=== PATIENT | male | born 1985 | race African-American/Black ===

== ENCOUNTER 2016-11-20 18:26 | Emergency (ER) | payer BC ==
[~2016-11-20] VITALS: Ht 182.9 cm; Wt 115.0 kg
--- NOTE | 2016-11-20 18:57 | NUR ---
STATES HE HAS A SCRATCHY THROAT SUN & MON. CL
--- NOTE | 2016-11-20 19:00 | NUR ---
MD MADE AWARE OF PATIENT COMPLAINT- MD ORDERED AN EKG.
[2016-11-20 19:40] LABS: ANION GAP 16.1 MEQ/L (3-15)
[2016-11-20 20:33] VITALS: BP 119/73
--- NOTE | 2016-11-20 20:35 | NUR ---
PT GIVEN PHYSICIAN LIST TO ESTABLISH CARE WITH A PRIMARY PROVIDER
== END 2016-11-20 20:35 | disposition home or self-care (01) ==
LOC: ED 18:27
DX: M54.2 Cervicalgia (principal); M54.89 Other dorsalgia; M79.1 Myalgia
CPT/HCPCS: 36415; 71010; 80048; 84484; 93005; 93010; 99284